=== PATIENT | male | born 1990 | race Caucasian/White ===

== ENCOUNTER 2025-05-17 12:32 | Emergency (ER) | payer MEDICAID, SELFPAY ==
[2025-05-17 12:50] VITALS: BP 135/97; PULSE 66; RESP 18; TEMP 36.6; O2SAT 99
--- NOTE | 2025-05-17 12:56 | ED_ITS ---
HPI - General Adult General Chief complaint: Skin/Abscess/Foreign Body Stated complaint: Rash Time Seen by Provider: 05/17/25 12:56 Source: patient, RN notes reviewed and old records reviewed Mode of arrival: ambulatory Limitations: no limitations History of Present Illness HPI narrative: 34-year-old male presents to the [facility] with 2 week history of a rash. Rash appeared 2 weeks ago when he was helping with yd work and house demolition. 2 months ago was [facility]. Patient was told he needed to have a note saying that he does not have scabies before he can be treated with his medication, Biktarvy. 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 Has applied ivermectin Scabbed over areas to the lower legs, forearms are completely healed. Most likely had sugars from the house remodeling in your work unlikely to have scabies. Patient is not covered, no areas of irritation to the groin, waistline or armpit. Onset (ago): week(s) (2) Related Data Home Medications ?Medication ?Instructions ?Recorded ?Confirmed ?Last Taken ?Type bictegravir 50 mg-emtricitabine 1 tablet PO DAILY 05/01 02/22 Unknown History 200 mg-tenofovir alafenam 25 mg tablet (Biktarvy) Allergies Allergy/AdvReac Type Severity Reaction Status Date / Time No Known Allergies Allergy Mild Verified 05/17/25 12:52 Review of Systems Review of Systems: All systems reviewed & are unremarkable except as noted in HPI and below Constitutional: Constitutional: Reports no additional constitutional complaints ENT: Reports system reviewed and no additional complaints, except as documented Cardiovascular: Cardiovascular: Reports no additional cardiovascular complaints, Denies chest pain and Denies dyspnea Respiratory: Respiratory: Reports no additional respiratory complaints, Denies chest congestion, Denies cough and Denies dyspnea Musculoskeletal: Musculoskeletal: Reports no additional musculoskeletal complaints Integumentary/Breasts: Skin/Breast: Reports as per HPI PMFSH Comments At the time of my signature, I reviewed and agree with the nursing past medical, surgical, social, and family history. There is no relevant family history pertinent to the patient complaint. Exam Const: General: cooperative, healthy appearing, comfortable, no acute distress, well developed, alert and well nourished Nutritional Appearance: well nourished and obese Orientation/consciousness: patient oriented x3 Limitations: no limitations HENMT: Head: normal to inspection Eyes: General: appearance normal, both eyes and all related structures Alignment and Position: alignment normal Neck: Neck: normal visual inspection, full ROM, no lymphadenopathy and no meningeal signs Chest: Chest palpation & inspection: normal inspection of the chest Resp: Effort & Inspection: normal respiratory effort and able to speak in complete sentences Auscultation: clear to auscultation bilaterally, no crackles, no rales, no rhonchi and no wheezes Cardio: Rate: regular rate Skin: General skin exam: normal color and no rashes or lesions noted Other: Scabbed areas to the lower legs bilateral, arms have no acute findings. No signs of cellulitis. Neuro: General: patient oriented x3, gait normal, moves all extremities and no meningeal signs Cognition (Neuro): normal cognition Speech: normal speech Gait exam (Neuro): Normal gait present Extrem: General: normal to inspection, full ROM, capillary refill normal and normal gait Psych: Appearance: grossly normal and well kempt Mental Status: mental status grossly normal Speech and movement: Normal speech and movement present and Clear speech present Affect: normal affect Attitude: cooperative Course Course Level of Care: Express Care Visit Vital Signs Vital signs: Vital Signs Temperature 97.8 F 05/17/25 12:50 Pulse Rate 66 05/17/25 12:50 Respiratory Rate 18 05/17/25 12:50 Blood Pressure 135/97 H 05/17/25 12:50 Pulse Oximetry 99 05/17/25 12:50 Oxygen Delivery Room Air 05/17/25 12:50 Temperature 97.8 F 05/17/25 12:50 Pulse Rate 66 05/17/25 12:50 Respiratory Rate 18 05/17/25 12:50 Blood Pressure 135/97 H 05/17/25 12:50 Pulse Oximetry 99 05/17/25 12:50 Oxygen Delivery Room Air 05/17/25 12:50 Reviewed Medical Decision Making MDM Narrative Medical decision making narrative: Patient sitting comfortably in exam room. Nontoxic, vitals stable. Patient in no acute distress Patient presents with concerns for rash to bilateral lower legs for 2 weeks. Discussed most likely chiggers, however will cover with permethrin so he can get his medication through his beach lifeguard. Patient appropriate for outpatient treatment with close follow Discharge instructions reviewed with patient, as well as provided in writing per nursing staff. The instructions also include specific and strict return/GO TO THE ER as well as f/u information. All questions have been answered, and the patient deny any further questions with discharge and discharge plan. Some parts of this dictation were generated by voice recognition software and may contain typographical and/or grammatical inaccuracies. Differential Diagnosis Differential Diagnosis: Rash, dermatitis, Medical Records Medical records reviewed: Yes I reviewed the external patient's medical records. Vital Signs Vital Signs: Vital Signs Temperature 97.8 F 05/17/25 12:50 Pulse Rate 66 05/17/25 12:50 Respiratory Rate 18 05/17/25 12:50 Blood Pressure 135/97 H 05/17/25 12:50 Pulse Oximetry 99 05/17/25 12:50 Oxygen Delivery Room Air 05/17/25 12:50 Temperature 97.8 F 05/17/25 12:50 Pulse Rate 66 05/17/25 12:50 Respiratory Rate 18 05/17/25 12:50 Blood Pressure 135/97 H 05/17/25 12:50 Pulse Oximetry 99 05/17/25 12:50 Oxygen Delivery Room Air 05/17/25 12:50 Reviewed Lab Data Lab results reviewed: Yes I reviewed the patient's lab results. Labs: Reviewed Critical Care Time Critical Care Time Critical Care Time: No Discharge Plan Discharge Clinical Impression: Urticaria, Contact dermatitis Insect bites Qualifiers: Encounter type: initial encounter Patient Disposition: Home Condition: Stable Instructions: Insect Bite or Sting (ED), Chigger Bite (ED) Additional Instructions: The most important part of your care is follow up with Primary care provider. Take Benadryl 25 mg every 8 hours for itching Take Zyrtec every day Apply cream, leave on for 12 hours, shower and wash bedding after cream has been on for 12 hours Avoid hot showers, Take cool showers. Hot showers will make rashes worse Apply cool compresses every 2-3 hours for 15 minutes Go to the ER for new or worsening symptoms such as shortness of breath. Patient Language: Swedish Prescriptions: New permethrin 5 % cream 1 applic topical ONCE Qty: 60 0RF Rx Instructions: leave on for 8 to14 hrs before washing off No Action Biktarvy 50-200-25 mg tablet 1 tablet PO DAILY Follow-up/Referrals: Reagan Alvarez MD [Primary Care Provider, Family Practice] Stand Alone Forms: Work/School Release IP Time of Disposition: 13:09
== END 2025-05-17 13:16 | disposition home or self-care (01) ==
PROVIDERS: Emergency Provider Nurse Practitioner; PCP Family Medicine
DX: L50.9 Urticaria, unspecified (principal); L25.9 Unspecified contact dermatitis, unspecified cause; S80.862A Insect bite (nonvenomous), left lower leg, initial encounter; S80.861A Insect bite (nonvenomous), right lower leg, initial encounter; W57.XXXA Bitten or stung by nonvenomous insect and other nonvenomous arthropods, initial encounter; Z21 Asymptomatic human immunodeficiency virus [HIV] infection status
CPT/HCPCS: 99203; G0463